=== PATIENT | male | born 1945 | race Caucasian/White ===

== ENCOUNTER 2025-05-28 11:18 | Day surgery (SDC) | payer MEDICARE, BC ==
[2025-05-24 11:34] LABS: MEAN PLATELET VOLUME 9.6 FL (7.4-10.4); RED CELL DISTRIBUTION WIDTH 14.7 % (11.5-14.5)
[2025-05-24 11:46] LABS: APTT 37 SECONDS (22-32); INR 1.1 INR
[2025-05-24 11:48] LABS: CHOL/HDL RATIO 2.0 (0.00-4.99); CREATININE 0.66 MG/DL (0.60-1.10); LDL CHOLESTEROL 44 MG/DL (50-100); TOTAL CARBON DIOXIDE 28.9 MMOL/L (24-32); eGFR > 90 ML/MIN
[~2025-05-28] VITALS: Ht 182.9 cm; Wt 93.2 kg
[2025-05-28] VITALS (8 sets, daily range): BP systolic 114–152; BP diastolic 50–81; PULSE 57–69; RESP 14–16; TEMP 99.4; O2SAT 96–99
--- NOTE | 2025-05-28 11:41 | ELECTROCARDIOGRAPH REPORT ---
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 Eladio Null Measurements Intervals Brooks Rate: 68 P: 75 WV: 184 QRS: 19 QRSD: 104 T: 65 QT: 424 QTc: 451 Interpretive Statements Sinus rhythm Baseline artifact limits interpretation Minimal ST depression, lateral leads Electronically Signed On 05-29-2025 8:34:[address] Eladio Null Please click the below link to view image of tracing.
[2025-05-28] MEDS ORDERED: CHOL100025 PO (12:11)
[2025-05-28] MEDS ORDERED: ATOR20TA PO (12:11)
[2025-05-28] MEDS ORDERED: MULT-1085 PO (12:11)
[2025-05-28] MEDS ORDERED: AMLO5TAB PO (12:11)
[2025-05-28] MEDS ORDERED: DOXA-8 PO (12:11)
[2025-05-28] MEDS ORDERED: ASPI-1674 PO (12:11)
[2025-05-28] MEDS ORDERED: LOSA1TAB39 PO (12:11)
[2025-05-28] MEDS ORDERED: METO100T7 PO (12:11)
[2025-05-28] MEDS ORDERED: LIDOcaine 1% (10mg/ml) 2ml vial ONE ×2 (13:45→14:00)
[2025-05-28] MEDS ORDERED: verapamil 2.5 mg/ml inj IV ONE (13:45)
[2025-05-28] MEDS ORDERED: fentaNYL/PF 50MCG/1 ML 2ML syringe ONE (13:46)
[2025-05-28] MEDS ORDERED: heparin 1,000unit/ml 10ml vial 10 ML ONE (13:46)
[2025-05-28] MEDS ORDERED: midazolam 1 mg/ML 2ml injection ONE (13:46)
[2025-05-28] MEDS ORDERED: nitroGLYCERIN 500mcg/5mL D5W 5 ML IV ONE (13:46)
[2025-05-28] MEDS ORDERED: LIDOcaine 1% 30ml preserv. free vial ONE (14:13)
[2025-05-28] MEDS ORDERED: ondansetron/PF 4mg/2ml inj IV PRN (15:10)
[2025-05-28] MEDS ORDERED: OXAZEpam 15mg capsule PO PRN (15:15)
== END 2025-05-28 17:10 | disposition home or self-care (01) ==
LOC: SSTAY O 11:18
PROVIDERS: ATTEND Student in an Organized Health Care Education/Training Program
DX: I35.0 Nonrheumatic aortic (valve) stenosis (principal); Z53.8 Procedure and treatment not carried out for other reasons; I10 Essential (primary) hypertension; E11.9 Type 2 diabetes mellitus without complications; E78.00 Pure hypercholesterolemia, unspecified; Z79.82 Long term (current) use of aspirin; Z79.899 Other long term (current) drug therapy; Z95.0 Presence of cardiac pacemaker
CPT/HCPCS: 36415; 80048; 80061; 83695; 85025; 85610; 85730; 93005; 93456; 99152; A6258; A6402; C1751; C1894; J1644; J2003; J2250; J3010; J3490; J7030; Q0163; Q9967; Z7610; 99153

== ENCOUNTER 2025-07-04 11:18 | Outpatient (CLI) | payer MEDICARE, BC ==
[~2025-07-04 11:18] MED LIST: AMLO5TAB PO; ASPI-1674 PO; ATOR20TA PO; CHOL100025 PO; DOXA-8 PO; IODIXANOL 320 MG/ML INFUS..BTL 100ML IV ONE; LOSA1TAB39 PO; METO100T7 PO; MULT-1085 PO
[2025-07-04 11:42] LABS: MEAN PLATELET VOLUME 9.3 FL (7.4-10.4); RED CELL DISTRIBUTION WIDTH 15.0 % (11.5-14.5)
[2025-07-04 11:55] LABS: APTT 38 SECONDS (22-32); INR 1.1 INR
--- NOTE | 2025-07-04 12:12 | RADIOLOGY REPORT ---
DI CHEST,TWO VIEWS CLINICAL HISTORY: SOB TAVR COMPARISON: None TECHNIQUE: Frontal and lateral view of the chest was obtained FINDINGS: Lines and Tubes: Dual lead left-sided pacemaker Lungs: No focal consolidation. Pleura: No effusion. No pneumothorax. Cardiomediastinal contours: Unremarkable Bones: No acute osseous abnormality. IMPRESSION: No acute cardiopulmonary disease.
[2025-07-04 12:27] LABS: CREATININE 0.91 MG/DL (0.60-1.10); PRO BRAIN NATRIURETIC PEPTIDE 874 PG/ML (0-450); TOTAL CARBON DIOXIDE 26.6 MMOL/L (24-32); eGFR 81 ML/MIN
--- NOTE | 2025-07-05 14:10 | RADIOLOGY REPORT ---
CT CTA TAVR INDICATION: TAVR TECHNIQUE: Gated CT angiography of the heart was performed along with CT angiography of the lower nec k, chest, abdomen, and pelvis. MIP, MPR, and 3-D images were obtained. Measurements were performed on the [employer] workstation. All CT scans at this facility use dose modulation, iterative reconstruction , and/or weight based dosing when appropriate to reduce radiation dose to as low as reasonably achiev able. COMPARISON: None available at the time of dictation. FINDINGS: ANNULAR PLANE DISTANCE: 25.2 x 22.5 mm AREA: 4.32 cm2 AVERAGE DIAMETER: 23.85 mm PERIMETER: 74.2 mm LEFT CORONARY ARTERY HEIGHT ABOVE ANNULAR PLANE: 12.6 mm RIGHT CORONARY ARTERY HEIGHT ABOVE ANNULAR PLANE: 17 mm LEFT CORONARY SINUS DIAMETER: 32.3 mm RIGHT CORONARY SINUS DIAMETER: 32.9 mm NONCORONARY CORONARY SINUS DIAMETER: 31.6 mm SINOTUBULAR JUNCTION DIAMETER: 28.2 mm RIGHT COMMON ILIAC ARTERY MINIMAL DIMENSIONS: 7.97 mm RIGHT EXTERNAL ILIAC ARTERY MINIMAL DIMENSIONS: 9.11 mm RIGHT COMMON FEMORAL ARTERY MINIMAL DIMENSIONS: 5.5 mm LEFT COMMON ILIAC ARTERY MINIMAL DIMENSIONS: 8.64 mm LEFT EXTERNAL ILIAC ARTERY MINIMAL DIMENSIONS: 8.2 mm LEFT COMMON FEMORAL ARTERY MINIMAL DIMENSIONS: 7.4 mm [LOWER NECK]: Unremarkable [LYMPH NODES/MEDIASTINUM]: No abnormal lymph nodes by CT size criteria [CARDIOVASCULAR]: Normal cardiac size. No pericardial effusion. No aneurysmal dilatation of the great vessels. Coronary artery calcifications. [LUNG PARENCHYMA/PLEURAL SPACE]: No consolidation, suspicious focal airspace opacity, or suspicious n odules. No pleural effusion or pneumothorax. Pneumatocele in the right lung base. [CHEST WALL]: Unremarkable. [LIVER]: Small amount of fatty infiltration along the falciform ligament. [SPLEEN]: Unremarkable. [PANCREAS]: Fatty atrophy, which may be seen in the setting of underlying metabolic derangement such as diabetes. [GALLBLADDER AND BILIARY TREE]: No cholelithiasis. No biliary dilatation. [ADRENAL GLANDS]: Unremarkable [KIDNEYS]: No hydronephrosis. No nephroureterolithiasis. [BLADDER]: Decompressed [PELVIC ORGANS]: Unremarkable. [BOWEL/MESENTERY]: Stomach is normal. No CT evidence of bowel obstruction. Appendix is normal. There is no free air. Minimal sigmoid diverticulosis. [ASCITES]: Absent [LYMPHADENOPATHY]: No pathologically enlarged lymph nodes by CT size criteria [VASCULATURE]: Vascular calcifications. [ABDOMINAL WALL]: Unremarkable. [MUSCULOSKELETAL]: No acute fracture or aggressive focal osseous lesion. Multifocal degenerative archer ge of the visualized spine. IMPRESSION: 1. Calculations for TAVR evaluation as above.
== END 2025-07-04 23:59 | disposition home or self-care (01) ==
LOC: RAD 11:18
PROVIDERS: ATTEND Internal Medicine Cardiovascular Disease
DX: I35.0 Nonrheumatic aortic (valve) stenosis (principal); R06.02 Shortness of breath; I65.29 Occlusion and stenosis of unspecified carotid artery; Z95.0 Presence of cardiac pacemaker
CPT/HCPCS: 36415; 71046; 71275; 74174; 75572; 80053; 83880; 85025; 85610; 85730; Q9967